=== PATIENT | female | born 1940 | race Caucasian/White ===

== ENCOUNTER → 2017-01-21 | Outpatient (CLI) | payer MEDICARE, BC | END | disposition home or self-care (01) | LOC: LAB.O 07:49 | PROVIDERS: ATTEND Internal Medicine Hepatology | DX: B18.2 Chronic viral hepatitis C (principal) ==

== ENCOUNTER → 2017-03-06 | Outpatient (CLI) | payer MEDICARE, BC | LOC: GMAJ 09:11 | PROVIDERS: ATTEND Family Medicine | DX: B18.2 Chronic viral hepatitis C (principal) ==

== ENCOUNTER → 2017-05-22 | Outpatient (CLI) | payer MEDICARE, BC | LOC: GMAJ 14:37 | PROVIDERS: ATTEND Family Medicine | DX: I10 Essential (primary) hypertension (principal) ==

== ENCOUNTER → 2017-05-28 | Outpatient (CLI) | payer MEDICARE, BC | LOC: LAB.O 08:44 | PROVIDERS: ATTEND Internal Medicine Hepatology | DX: I85.00 Esophageal varices without bleeding (principal); B18.2 Chronic viral hepatitis C; K76.89 Other specified diseases of liver; C22.0 Liver cell carcinoma ==

== ENCOUNTER → 2017-06-13 | Outpatient (CLI) | payer MEDICARE | END | disposition home or self-care (01) | LOC: GMAJ 14:00 | PROVIDERS: ATTEND Family Medicine | DX: K74.69 Other cirrhosis of liver (principal) ==

== ENCOUNTER → 2017-09-02 | Outpatient (CLI) | payer MEDICARE | END | disposition home or self-care (01) | LOC: LAB.O 08:49 | PROVIDERS: ATTEND Internal Medicine Hepatology | DX: K74.69 Other cirrhosis of liver (principal); B18.2 Chronic viral hepatitis C ==

== ENCOUNTER → 2017-11-28 | Outpatient (CLI) | payer MEDICARE | LOC: LAB.O 09:19 | PROVIDERS: ATTEND Internal Medicine Hepatology | DX: K74.69 Other cirrhosis of liver (principal) ==

== ENCOUNTER → 2017-12-03 | Outpatient (CLI) | payer MEDICARE | LOC: LAB.O 15:11 | PROVIDERS: ATTEND Internal Medicine Hepatology | DX: K74.69 Other cirrhosis of liver (principal) ==